=== PATIENT | female | born 1930 | race Two or more races ===

== ENCOUNTER 2018-03-14 16:33 | Emergency (ER) | payer MEDICARE, OTHER ==
[~2018-03-14] VITALS: Ht 165.1 cm; Wt 59.0 kg
[2018-03-14 17:30] VITALS: BP 156/64
[2018-03-14 17:48] LABS: BASOPHILS % (AUTO) 1.5 % (0.0-2.0); EOSINOPHILS % (AUTO) 0.4 % (0.0-3.0); HEMATOCRIT 44.2 % (37.0-47.0); HEMOGLOBIN 14.2 G/DL (12.0-16.0); LYMPHOCYTES % (AUTO) 26.5 % (20.0-45.0); MEAN CORPUSCULAR VOLUME 88 FL (80-99); NEUTROPHILS % (AUTO) 58.6 % (45.0-75.0); PLATELET COUNT 376 K/UL (150-450); RED BLOOD COUNT 5.05 M/UL (4.20-5.40); RED CELL DISTRIBUTION WIDTH 13.2 % (11.6-14.8); WHITE BLOOD COUNT 9.2 K/UL (4.8-10.8)
[2018-03-14 17:52] LABS: INR 0.9 (0.9-1.1)
[2018-03-14 17:54] LABS: ANION GAP 13 mmol/L (5-15); BLOOD UREA NITROGEN 29 mg/dL (7-18); CALCIUM 9.3 MG/DL (8.5-10.1); CARBON DIOXIDE 21 MMOL/L (21-32); CHLORIDE 102 MMOL/L (98-107); POTASSIUM 3.9 MMOL/L (3.5-5.1); SODIUM 136 MMOL/L (136-145)
[2018-03-14 18:00] VITALS: BP 142/91
[2018-03-14] MEDS ORDERED: EDARBYCLOR 40-1 EAC1 ORAL (18:02)
[2018-03-14] MEDS ORDERED: BRIMONIDINE TART5 ML BOTH EYES (18:02)
[2018-03-14] MEDS ORDERED: METOPROLOL TART25 MG ORAL (18:02)
[2018-03-14] MEDS ORDERED: ATORVASTATIN CA20 MG ORAL (18:02)
[2018-03-14] MEDS ORDERED: MELOXICAM15 MG PO (18:02)
[2018-03-14] MEDS ORDERED: PROCARDIA XL90 M4 ORAL (18:02)
[2018-03-14 18:08] LABS: ALANINE AMINOTRANSFERASE 20 U/L (12-78); ALBUMIN 4.1 G/DL (3.4-5.0); ALKALINE PHOSPHATASE 111 U/L (46-116); ASPARTATE AMINO TRANSFERASE 18 U/L (15-37); BILIRUBIN,TOTAL 0.8 MG/DL (0.2-1.0); CREATINE KINASE 141 U/L (26-308)
--- NOTE | 2018-03-14 18:18 | Emergency Room Report ---
History of Present Illness General Chief Complaint: Altered Level of Consciousness Source: Medical Record Present Illness HPI Patient presents with complaints of change in mental status patient has been having difficulty speaking Initially on initial evaluation patient was showing signs of expressive aphasia history was difficult to obtain from the patient After family has presented patient had complained of a possible stroke on Wednesday With similar symptoms of expressive aphasia Patient also complains of the right hand had felt somewhat weaker than usual with numbness and tingling Denies any chest pain denies any back or flank pain Denies any acute fall or trauma Allergies: Coded Allergies: No Known Allergies (Unverified , 03/14/18) Patient History Past Medical History: see triage record Pertinent Family History: none Reviewed Nursing Documentation: PMH: Agreed; PSxH: Agreed Nursing Documentation-PMH Hx Cardiac Problems: Yes Hx Hypertension: Yes Review of Systems All Other Systems: negative except mentioned in HPI Physical Exam Vital Signs Date Time Temp Pulse Resp B/P (MAP) Pulse Ox O2 Delivery O2 Flow Rate FiO2 03/14/18 16:36 98.0 130 18 130/80 98 Room Air 98.1 Sp02 EP Interpretation: reviewed, normal General Appearance: well appearing Head: normocephalic, atraumatic Eyes: bilateral eye PERRL, bilateral eye EOMI ENT: hearing grossly normal, normal pharynx Neck: supple, thyroid normal Respiratory: lungs clear, no retraction, no accessory muscle use Cardiovascular #1: tachycardia, irregularly irregular Gastrointestinal: non tender, soft, no mass Genitourinary: no CVA tenderness Musculoskeletal: other - Patient has equal outside salesman in both upper extremity, negative for drift, moves both feet equally as well Neurologic: alert, oriented x3, other - Patient shows signs of expressive aphasia is not able to complete her sentences, negative drift Skin: normal color, no rash Lymphatic: no adenopathy Procedures Critical Care Time Critical Care Time 50 minutes for multiple re-evaluations, critical findings concerning for acute CVA not including any procedural time Medical Decision Making Diagnostic Impression: Primary Impression: CVA (cerebral vascular accident) Additional Impressions: Atrial fibrillation and flutter Atrial fibrillation with RVR ER Course Patient is a fairly complex patient with multiple differential to consideration including but not limited to cardiac cardiopulmonary , neurological , such as CVA and vascular emergencies Patient's CT reveals findings of acute/subacute CVA Patient also showing signs of atrial fibrillation unclear the etiology of this Patient's onset of symptoms was 2 days ago Patient is well over the time for acute intervention such as TPA Nevertheless given the subacute he of this presentation [facility] was contacted They agree that there is no acute medication and patient is outside of the window However patient will still be transferred to tertiary center for continued higher level of care and further evaluation Patient provided with aspirin remains hemodynamically stable and separate transfer for continued care Labs Test 03/14/18 17:15 White Blood Count 9.2 K/UL (4.8-10.8) Red Blood Count 5.05 M/UL (4.20-5.40) Hemoglobin 14.2 G/DL (12.0-16.0) Hematocrit 44.2 % (37.0-47.0) Mean Corpuscular Volume 88 FL (80-99) Mean Corpuscular Hemoglobin 28.1 PG (27.0-31.0) Mean Corpuscular Hemoglobin Concent 32.1 G/DL (32.0-36.0) Red Cell Distribution Width 13.2 % (11.6-14.8) Platelet Count 376 K/UL (150-450) Mean Platelet Volume 7.5 FL (6.5-10.1) Neutrophils (%) (Auto) 58.6 % (45.0-75.0) Lymphocytes (%) (Auto) 26.5 % (20.0-45.0) Monocytes (%) (Auto) 13.0 % (1.0-10.0) Eosinophils (%) (Auto) 0.4 % (0.0-3.0) Basophils (%) (Auto) 1.5 % (0.0-2.0) Prothrombin Time 9.7 SEC (9.30-11.50) Prothromb Time International Ratio 0.9 (0.9-1.1) Activated Partial Thromboplast Time 26 SEC (23-33) Sodium Level 136 MMOL/L (136-145) Potassium Level 3.9 MMOL/L (3.5-5.1) Chloride Level 102 MMOL/L (98-107) Carbon Dioxide Level 21 MMOL/L (21-32) Anion Gap 13 mmol/L (5-15) Blood Urea Nitrogen 29 mg/dL (7-18) Creatinine 2.0 MG/DL (0.55-1.30) Estimat Glomerular Filtration Rate mL/min (>60) Glucose Level 93 MG/DL (74-106) Lactic Acid Level 1.70 mmol/L (0.4-2.0) Calcium Level 9.3 MG/DL (8.5-10.1) Total Bilirubin 0.8 MG/DL (0.2-1.0) Aspartate Amino Transf (AST/SGOT) 18 U/L (15-37) Alanine Aminotransferase (ALT/SGPT) 20 U/L (12-78) Alkaline Phosphatase 111 U/L (46-116) Total Creatine Kinase 141 U/L (26-308) Creatine Kinase MB 2.0 NG/ML (0.0-3.6) Creatine Kinase MB Relative Index 1.4 Troponin I 0.000 ng/mL (0.000-0.056) Pro-B-Type Natriuretic Peptide 1793 pg/mL (0-125) Total Protein 8.1 G/DL (6.4-8.2) Albumin 4.1 G/DL (3.4-5.0) Globulin 4.0 g/dL Albumin/Globulin Ratio 1.0 (1.0-2.7) Lipase 160 U/L (73-393) EKG Diagnostic Results Rate: tachycardiac Rhythm: other - A. fib ST Segments: other - Nonspecific ST T wave changes Rhythm Strip Diag. Results EP Interpretation: yes Rate: 105 Rhythm: no PVC's, no ectopy, other - A. fib Chest X-Ray Diagnostic Results Chest X-Ray Diagnostic Results : Chest X-Ray Ordered: Yes # of Views/Limited/Complete: 1 View Indication: Chest Pain EP Interpretation: Yes Interpretation: no consolidation, no effusion, other - Cardiomegaly Impression: No acute disease Electronically Signed by: Adrianne Solis DO CT/MRI/US Diagnostic Results CT/MRI/US Diagnostic Results : Impression CT head: Acute/subacute CVA left parietal temporal region Last Vital Signs Date Time Temp Pulse Resp B/P (MAP) Pulse Ox O2 Delivery O2 Flow Rate FiO2 03/14/18 17:30 119 20 156/64 99 Room Air 03/14/18 16:36 98.0 98.1 Status: improved Disposition: XFER SHT-TRM HOSP Condition: Critical Referrals: [facility],REFERRING (PCP) Adrianne Solis DO Mar 14, 2018 18:18
[2018-03-14 18:30] VITALS: BP 158/57
[2018-03-14 19:29] VITALS: BP 158/91
[2018-03-14 19:45] LABS: APPEARANCE,URINE CLEAR; BILIRUBIN, URINE NEGATIVE (NEGATIVE); COLOR,URINE PALE YELLOW; GLUCOSE, URINE (UA) NEGATIVE (NEGATIVE); KETONES,URINE NEGATIVE (NEGATIVE); LEUKOCYTE ESTERASE ,URINE 2+ (NEGATIVE); NITRITE,URINE NEGATIVE (NEGATIVE); PH,URINE 5 (4.5-8.0); PROTEIN,URINE NEGATIVE (NEGATIVE); UROBILINOGEN,URINE NORMAL MG/DL (0.0-1.0)
--- NOTE | 2018-03-15 12:13 | Diagnostic Imaging Report ---
Indication: Chest pain Technique: One view of the chest Comparison: none Findings: Lungs and pleural spaces are clear. Heart is mildly enlarged. The aorta is calcified Impression: No acute process Borderline cardiomegaly
--- NOTE | 2018-03-15 13:08 | Diagnostic Imaging Report ---
Indications: Altered mental status Technique: Spiral acquisitions obtained through the brain. Angled axial and coronal 5 x 5 mm slices were reconstructed. Total dose length product 1375.76 mGycm. CTDI vol(s) 70.38 mGy. Dose reduction achieved using automated exposure control Comparison: None. Findings: There is a wedge-shaped area of cytotoxic edema in the anterior left parietal lobe. There is generalized age-related enlargement of the ventricles and extra axial CSF spaces. This results in minimal local mass effect. There is periventricular deep white matter low-attenuation consistent with chronic ischemic change. No acute intracranial hemorrhage or edema or midline shift. Intact calvarium. Visualized orbits and sinuses are unremarkable Impression: Cytotoxic edema in the left anterior right lobe, consistent with acute/subacute infarct Negative for acute intracranial bleed Chronic and age-related changes, as described This agrees with the preliminary interpretation provided overnight by [facility] teleradiology service. The CT scanner at [facility] is accredited by the [employer] and the scans are performed using protocols designed to limit radiation exposure to as low as reasonably achievable to attain images of sufficient resolution adequate for diagnostic evaluation.
== END 2018-03-14 19:17 | disposition short-term general hospital (02) ==
LOC: EDBD 16:33 → EMR 17:37
DX: I63.9 Cerebral infarction, unspecified (principal); I48.91 Unspecified atrial fibrillation; I48.92 Unspecified atrial flutter; I10 Essential (primary) hypertension
CPT/HCPCS: 36415; 70450; 71045; 80053; 81003; 82550; 82553; 83605; 83690; 83880; 84484; 85025; 85610; 85730; 87040; 99291

== ENCOUNTER 2018-04-10 21:18 | Emergency (ER) | payer MEDICARE ==
[~2018-04-10] VITALS: Ht 162.6 cm; Wt 70.3 kg
[~2018-04-10 21:18] MED LIST: ATORVASTATIN CA20 MG ORAL; BRIMONIDINE TART5 ML BOTH EYES; EDARBYCLOR 40-1 EAC1 ORAL; MELOXICAM15 MG PO; METOPROLOL TART25 MG ORAL; PROCARDIA XL90 M4 ORAL
--- NOTE | 2018-04-10 21:23 | Emergency Room Report ---
History of Present Illness General Chief Complaint: Chest Pain Source: Patient, EMS Present Illness HPI Patient presents with left-sided chest pain. She feels a Berry palpitations. She rates this as 3/10. There is some pressure. She has history of atrial fibrillation and feels her heart is racing at this time. She's had problems with control of the rate. She's got a heart monitor at home. 2 weeks ago she had a stroke. Affected her thinking somewhat but her strength is good bilaterally. She also has a headache at this time. She denies dizziness or near syncope. The patient is on Elquis. The patient also complains about swelling both of her legs. There is no pain or calfs. She denies shortness of breath. No fevers, chills dysuria or change in bowel habits. Allergies: Coded Allergies: No Known Allergies (Unverified , 03/14/18) Patient History Past Medical History: see triage record Social History: Denies: smoking, alcohol use, drug use Social History Narrative from home Reviewed Nursing Documentation: PMH: Agreed; PSxH: Agreed Nursing Documentation-PMH Hx Hypertension: Yes Hx Cerebrovascular Accident: Yes Review of Systems All Other Systems: negative except mentioned in HPI Physical Exam Vital Signs Date Time Temp Pulse Resp B/P (MAP) Pulse Ox O2 Delivery O2 Flow Rate FiO2 04/10/18 21:05 98.0 94 18 167/67 98 Room Air 98.1 Sp02 EP Interpretation: reviewed, normal General Appearance: well appearing, no apparent distress, GCS 15 Head: normocephalic Eyes: bilateral eye normal inspection, bilateral eye PERRL, bilateral eye EOMI ENT: moist mucus membranes Neck: supple Respiratory: lungs clear, normal breath sounds Cardiovascular #1: regular rate, rhythm Cardiovascular #2: 2+ radial (R) Gastrointestinal: normal inspection, normal bowel sounds, non tender, no mass, non-distended Musculoskeletal: back normal, normal range of motion, swelling - MCPs Neurologic: alert, oriented x3, felt coverer III-XII nml as tested, DTRs symmetric, sensory intact, cerebellar normal, speech normal, motor weakness - L, patient states not worsened Psychiatric: mood/affect normal Skin: normal inspection, warm/dry Medical Decision Making Diagnostic Impression: Primary Impression: Chest pain Qualified Codes: R07.9 - Chest pain, unspecified Additional Impressions: Atrial fibrillation with RVR Petechial hemorrhage Eliquis use ER Course Patient presents with chest pain and atrial fibrillation with rapid ventricular response. Differential includes acute myocardial infarction, myocardial ischemia, opticians from rapid heart rate, chest wall pain amongst others. Evaluation will be with EKG, chest x-ray and labs. The patient will be treated with diltiazem. In addition to that she will receive a small dose of morphine for the headache. EKG with atrial fibrillation with rapid ventricular response no acute changes. Chest x-ray globular heart. Labs significant for negative troponin. Patient refused initial analgesia. CT of the head was ordered. This revealed an area of petechial hemorrhage the left parietal cortex where the prior CVA was. The patient was presented to Dr. Pat. He stated that he has access to neurosurgery and neurology at [place]. The patient is transferred to [place] imparted to higher level of care. The patient was still complaining about headache and agreed to take a small dose of morphine. Her neurologic exam was unchanged. Presented to Dr. Jha as [facility] does not have beds. Accepted at [facility]. Presented to Dr. Perez as [facility] is not a contracted hospital for [place]. Admit tele Dr. Perez. Laboratory Tests Test 04/10/18 21:15 04/10/18 21:20 Urine Color Pending Urine Appearance Pending Urine pH Pending Urine Specific [place] Pending Urine Protein Pending Urine Glucose (UA) Pending Urine Ketones Pending Urine Occult Blood Pending Urine Nitrite Pending Urine Bilirubin Pending Urine Urobilinogen Pending Urine Leukocyte Esterase Pending White Blood Count 11.5 K/UL (4.8-10.8) H Red Blood Count 4.37 M/UL (4.20-5.40) Hemoglobin 12.5 G/DL (12.0-16.0) Hematocrit 38.6 % (37.0-47.0) Mean Corpuscular Volume 88 FL (80-99) Mean Corpuscular Hemoglobin 28.6 PG (27.0-31.0) Mean Corpuscular Hemoglobin Concent 32.4 G/DL (32.0-36.0) Red Cell Distribution Width 14.8 % (11.6-14.8) Platelet Count 289 K/UL (150-450) Mean Platelet Volume 7.2 FL (6.5-10.1) Neutrophils (%) (Auto) 70.7 % (45.0-75.0) Lymphocytes (%) (Auto) 14.7 % (20.0-45.0) L Monocytes (%) (Auto) 11.9 % (1.0-10.0) H Eosinophils (%) (Auto) 1.0 % (0.0-3.0) Basophils (%) (Auto) 1.7 % (0.0-2.0) Prothrombin Time 10.6 SEC (9.30-11.50) Prothrombin Time INR 1.0 (0.9-1.1) PTT 25 SEC (23-33) Sodium Level 139 MMOL/L (136-145) Potassium Level 3.9 MMOL/L (3.5-5.1) Chloride Level 107 MMOL/L (98-107) Carbon Dioxide Level 24 MMOL/L (21-32) Anion Gap 8 mmol/L (5-15) Blood Urea Nitrogen 43 mg/dL (7-18) H Creatinine 1.7 MG/DL (0.55-1.30) H Estimate Glomerular Filtration Rate mL/min (>60) Glucose Level 111 MG/DL (74-106) H Calcium Level 8.5 MG/DL (8.5-10.1) Total Bilirubin 0.6 MG/DL (0.2-1.0) Aspartate Amino Transferase (AST) 15 U/L (15-37) Alanine Aminotransferase (ALT) 29 U/L (12-78) Alkaline Phosphatase 93 U/L (46-116) Total Creatine Kinase 30 U/L (26-308) Troponin I 0.022 ng/mL (0.000-0.056) Pro-B-Type Natriuretic Peptide 3254 pg/mL (0-125) H Total Protein 6.3 G/DL (6.4-8.2) L Albumin 3.0 G/DL (3.4-5.0) L Globulin 3.3 g/dL Albumin/Globulin Ratio 0.9 (1.0-2.7) L EKG Diagnostic Results Rate: tachycardiac ST Segments: no acute changes - a fib/flutter Rhythm Strip Diag. Results EP Interpretation: yes Rhythm: no PVC's, no ectopy, other - a fib RVR Chest X-Ray Diagnostic Results Chest X-Ray Diagnostic Results : Chest X-Ray Ordered: Yes # of Views/Limited/Complete: 1 View Indication: Chest Pain EP Interpretation: Yes Interpretation: no consolidation, no effusion, no pneumothorax, other - inc cor Impression: Other Electronically Signed by: Electronically signed by Dhruv Ferrer MD CT/MRI/US Diagnostic Results CT/MRI/US Diagnostic Results : Imaging Test Ordered: ct head Impression CT is compared to March 14. Some mild increase in density is seen along the cortex in the left parietal lobe where the acute infarct was seen on a prior exam. This is likely related to a small amount of petechial hemorrhage. Cerebral atrophy Last Vital Signs Date Time Temp Pulse Resp B/P (MAP) Pulse Ox O2 Delivery O2 Flow Rate FiO2 04/11/18 05:25 98.4 86 18 129/44 100 Room Air 98.4 Status: improved Disposition: ADMITTED INPATIENT Condition: Serious - higher level of care attempted, but unable Dhruv Ferrer M.D. Apr 10, 2018 21:23
[2018-04-10] MEDS ORDERED: ELIQUIS2.5 MG PO (21:28)
[2018-04-10] MEDS ORDERED: NIFEDIPINE10 MG ORAL (21:28)
[2018-04-10] MEDS ORDERED: dilTIAZem HCl 25mg/5ml Inj IV ONE (21:30)
[2018-04-10] MEDS ORDERED: Morphine Sulfate 2mg/ml Inj IVP ONE (21:30)
[2018-04-10 21:41] LABS: BASOPHILS % (AUTO) 1.7 % (0.0-2.0); HEMATOCRIT 38.6 % (37.0-47.0); HEMOGLOBIN 12.5 G/DL (12.0-16.0); LYMPHOCYTES % (AUTO) 14.7 % (20.0-45.0); MEAN CORPUSCULAR VOLUME 88 FL (80-99); MONOCYTES % (AUTO) 11.9 % (1.0-10.0); NEUTROPHILS % (AUTO) 70.7 % (45.0-75.0); PLATELET COUNT 289 K/UL (150-450); RED BLOOD COUNT 4.37 M/UL (4.20-5.40); RED CELL DISTRIBUTION WIDTH 14.8 % (11.6-14.8); WHITE BLOOD COUNT 11.5 K/UL (4.8-10.8)
[2018-04-10 21:58] LABS: ANION GAP 8 mmol/L (5-15); BLOOD UREA NITROGEN 43 mg/dL (7-18); CALCIUM 8.5 MG/DL (8.5-10.1); CARBON DIOXIDE 24 MMOL/L (21-32); CHLORIDE 107 MMOL/L (98-107); CREATININE 1.7 MG/DL (0.55-1.30); POTASSIUM 3.9 MMOL/L (3.5-5.1); SODIUM 139 MMOL/L (136-145)
[2018-04-10 22:09] LABS: ALANINE AMINOTRANSFERASE 29 U/L (12-78); ALBUMIN/GLOBULIN RATIO 0.9 (1.0-2.7); ALKALINE PHOSPHATASE 93 U/L (46-116); ASPARTATE AMINO TRANSFERASE 15 U/L (15-37); BILIRUBIN,TOTAL 0.6 MG/DL (0.2-1.0); CREATINE KINASE 30 U/L (26-308)
[2018-04-10 23:30] VITALS: BP 128/45
[2018-04-11] VITALS (8 sets, daily range): BP systolic 124–163; BP diastolic 44–78
[2018-04-11] MEDS ORDERED: Morphine Sulfate 2mg/ml Inj IVP ONE (00:30)
[2018-04-11 02:10] LABS: APPEARANCE,URINE CLEAR; BILIRUBIN, URINE NEGATIVE (NEGATIVE); COLOR,URINE PALE YELLOW; GLUCOSE, URINE (UA) NEGATIVE (NEGATIVE); KETONES,URINE NEGATIVE (NEGATIVE); LEUKOCYTE ESTERASE ,URINE 2+ (NEGATIVE); NITRITE,URINE NEGATIVE (NEGATIVE); PH,URINE 6 (4.5-8.0); PROTEIN,URINE NEGATIVE (NEGATIVE); UROBILINOGEN,URINE NORMAL MG/DL (0.0-1.0)
[2018-04-11] MEDS ORDERED: cefTRIAXone 1 GM in NS 55 ML IVPB ONE (02:45)
--- NOTE | 2018-04-11 09:56 | Diagnostic Imaging Report ---
Indications: Headache Technique: Spiral acquisitions obtained through the brain. Angled axial and coronal 5 x 5 mm slices were reconstructed. Total dose length product 1411.27 mGycm. CTDI vol(s) 70.38 mGy. Dose reduction achieved using automated exposure control Comparison: 03/14/2018 Findings: Previously demonstrated cytotoxic edema in the left parietal lobe is no longer evident, and only a small amount of residual encephalomalacia is present. There is very slight increased attenuation of the cortical valdovinos matter. Old right frontal and parietal cortical infarcts are again demonstrated. No acute intracranial hemorrhage or edema, mass effect, nor midline shift. There is age-related enlargement of the ventricles and extra axial CSF spaces. There is periventricular deep white matter ischemic change. Intact calvarium. Visualized orbits and sinuses are unremarkable. Impression: Subtle slight increased attenuation of cortical valdovinos matter area of previously demonstrated acute infarct, could represent a small amount of residual petechial hemorrhage. No other evidence of acute intracranial bleed. No mass effect. Other chronic and age-related changes, as described This agrees with the preliminary interpretation provided overnight by [facility] teleradiology service. The CT scanner at [facility] is accredited by the [employer] and the scans are performed using protocols designed to limit radiation exposure to as low as reasonably achievable to attain images of sufficient resolution adequate for diagnostic evaluation.
--- NOTE | 2018-04-11 11:58 | Diagnostic Imaging Report ---
Indication: Chest pain Technique: One view of the chest Comparison: 03/14/2018 Findings: Persistent elevation of the right hemidiaphragm. Lungs and pleural spaces are clear. The heart size is upper limits of normal. There are degenerative changes of both shoulders Impression: No acute process
--- NOTE | 2018-04-11 13:30 | History and Physical Report ---
DATE OF ADMISSION: 04/11/2018 HISTORY OF PRESENT ILLNESS: This is a very pleasant elderly female with a previous history of atrial fibrillation. The patient states she was admitted to this hospital and transferred to outside facility recently where she was kept for two days. She states she was discharged on a Holter monitor. However, she has not turned it back and she states she was having palpitations yesterday. She came to the emergency room and was admitted to the hospital. She also reports some chest discomfort. The patient reports that she has recently had a stroke. She denies any pedal edema or shortness of breath. At this point, she has no chest pain. The patient denies any headaches, hematemesis, melena, hematochezia, or weight loss. PAST MEDICAL HISTORY: Notable for atrial fibrillation and CVA. HOME MEDICATIONS: Include Eliquis, Lipitor, nifedipine, and metoprolol. ALLERGIES: None reported. REVIEW OF SYSTEMS: None reported. PHYSICAL EXAMINATION: GENERAL: Reveals elderly female. HEENT: Unremarkable. LUNGS: Clear breath sounds bilaterally. ABDOMEN: Soft. EXTREMITIES: There is no edema. NEUROLOGIC: Nonfocal. VITAL SIGNS: Blood pressure is 150/60, heart rate is 94, respirations 18, afebrile, and O2 of 92% on room air. LABORATORY AND DIAGNOSTIC DATA: Lab testing shows white count 11,500. Chemistries are normal. Troponin 0.02. Creatinine 1.7. EKG shows atrial fibrillation with controlled RVR. The patient underwent a chest x-ray, which was done in February, which was negative except for borderline cardiomegaly. She also had a head CT performed in February 2018, which showed edema of the left anterior right lobe consistent with subacute infarct. IMPRESSION: 1. Recent CVA. 2. Atrial fibrillation with RVR, rate controlled now. 3. Chronic Eliquis. 4. Hypertension. DISCUSSION: Admit to the hospital. We will consult Cardiology. Continue home medications. We will follow carefully. We will attempt to obtain old records. Renny Perez M.D. DR: MARIE JOB#: [id number] CC:
[2018-04-11] MEDS: Brimonidine 0.2% Opth Sol BOTH EYES SCH ×3 (15:13→21:12)
[2018-04-11] MEDS ORDERED: Atorvastatin 20mg tab ORAL SCH (21:00)
[2018-04-11] MEDS ORDERED: Metoprolol 25mg tab ORAL SCH (21:00)
--- NOTE | 2018-04-11 21:18 | Cardiology Progress Note ---
Assessment/Plan Assessment/Plan The patient is seen and examined, full consult note will be dictated. Objective Last 24 Hour Vital Signs Date Time Temp Pulse Resp B/P (MAP) Pulse Ox O2 Delivery O2 Flow Rate FiO2 04/11/18 21:02 93 134/71 04/11/18 20:02 97.8 93 18 134/71 (92) 97 97.8 04/11/18 15:45 89 04/11/18 12:00 98.9 92 18 160/72 (101) 95 98.9 04/11/18 11:50 87 04/11/18 09:00 Room Air 04/11/18 08:00 97.2 90 18 163/70 (101) 99 97.2 04/11/18 07:50 77 04/11/18 06:58 Room Air 04/11/18 06:33 98.4 04/11/18 06:00 97.0 90 21 160/78 (105) 97 97.0 04/11/18 05:30 98.4 86 18 129/44 100 Room Air 98.4 04/11/18 05:25 98.4 86 18 129/44 100 Room Air 98.4 04/11/18 04:00 97.9 78 18 124/46 100 Room Air 97.9 04/11/18 02:00 98.1 80 18 128/54 100 Room Air 98.1 04/11/18 00:53 98.1 04/11/18 00:20 98.1 81 18 130/60 100 Room Air 98.1 04/11/18 00:12 36.9 04/10/18 23:30 98.1 71 18 128/45 98 Room Air 98.1 04/10/18 23:13 98.0 04/10/18 21:48 95 147/60 04/10/18 21:20 94 18 Room Air Intake and Output 04/10/18 04/11/18 19:00 07:00 Intake Total 295 ml Balance 295 ml Intake Oral 240 ml IV Total 55 ml Laboratory Tests Test 04/10/18 21:20 04/11/18 10:00 White Blood Count 11.5 K/UL (4.8-10.8) H Red Blood Count 4.37 M/UL (4.20-5.40) Hemoglobin 12.5 G/DL (12.0-16.0) Hematocrit 38.6 % (37.0-47.0) Mean Corpuscular Volume 88 FL (80-99) Mean Corpuscular Hemoglobin 28.6 PG (27.0-31.0) Mean Corpuscular Hemoglobin Concent 32.4 G/DL (32.0-36.0) Red Cell Distribution Width 14.8 % (11.6-14.8) Platelet Count 289 K/UL (150-450) Mean Platelet Volume 7.2 FL (6.5-10.1) Neutrophils (%) (Auto) 70.7 % (45.0-75.0) Lymphocytes (%) (Auto) 14.7 % (20.0-45.0) L Monocytes (%) (Auto) 11.9 % (1.0-10.0) H Eosinophils (%) (Auto) 1.0 % (0.0-3.0) Basophils (%) (Auto) 1.7 % (0.0-2.0) Prothrombin Time 10.6 SEC (9.30-11.50) Prothromb Time International Ratio 1.0 (0.9-1.1) Activated Partial Thromboplast Time 25 SEC (23-33) Sodium Level 139 MMOL/L (136-145) Potassium Level 3.9 MMOL/L (3.5-5.1) Chloride Level 107 MMOL/L (98-107) Carbon Dioxide Level 24 MMOL/L (21-32) Anion Gap 8 mmol/L (5-15) Blood Urea Nitrogen 43 mg/dL (7-18) H Creatinine 1.7 MG/DL (0.55-1.30) H Estimat Glomerular Filtration Rate mL/min (>60) Glucose Level 111 MG/DL (74-106) H Calcium Level 8.5 MG/DL (8.5-10.1) Total Bilirubin 0.6 MG/DL (0.2-1.0) Aspartate Amino Transf (AST/SGOT) 15 U/L (15-37) Alanine Aminotransferase (ALT/SGPT) 29 U/L (12-78) Alkaline Phosphatase 93 U/L (46-116) Total Creatine Kinase 30 U/L (26-308) Troponin I 0.022 ng/mL (0.000-0.056) 0.024 ng/mL (0.000-0.056) Pro-B-Type Natriuretic Peptide 3254 pg/mL (0-125) H Total Protein 6.3 G/DL (6.4-8.2) L Albumin 3.0 G/DL (3.4-5.0) L Globulin 3.3 g/dL Albumin/Globulin Ratio 0.9 (1.0-2.7) L Shoaib Moslye MD Apr 11, 2018 21:18
[2018-04-11] MEDS ORDERED: Eliquis 2.5mg tablet ORAL SCH (22:00)
[2018-04-12] VITALS: BP 136/65
[2018-04-12 04:00] VITALS: BP 164/81
[2018-04-12] MEDS: Brimonidine 0.2% Opth Sol BOTH EYES SCH ×2 (06:09→14:00)
[2018-04-12 08:00] VITALS: BP 131/65
[2018-04-12] MEDS ORDERED: Meloxicam 15 MG TAB ORAL SCH (09:00)
[2018-04-12] MEDS ORDERED: Metoprolol Tartrate 50mg tab ORAL SCH (09:00)
[2018-04-12] MEDS ORDERED: Eliquis 2.5mg tablet ORAL SCH ×2 (09:00)
[2018-04-12 12:00] VITALS: BP 149/68
--- NOTE | 2018-04-12 23:27 | Cardiology Progress Note ---
Assessment/Plan Assessment/Plan 1. Atrial fibrillation, continue metoprolol and Eliquis. 2. 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 Continue nifedipine , hospital does not carry Edarbyclor. 3. Moderate pulmonary HTN. 4. Moderate MR/AR Subjective Subjective Atrial fibrillation at rate of 89. Objective Last 24 Hour Vital Signs Date Time Temp Pulse Resp B/P (MAP) Pulse Ox O2 Delivery O2 Flow Rate FiO2 04/12/18 12:00 98.7 89 18 149/68 (95) 98 98.7 04/12/18 09:08 105 131/65 04/12/18 09:00 Room Air 04/12/18 08:57 105 131/65 04/12/18 08:00 98.4 105 18 131/65 (87) 98 98.4 04/12/18 07:42 116 04/12/18 04:00 97.0 92 18 164/81 (108) 97 97.0 04/12/18 04:00 85 04/12/18 00:00 86 04/12/18 00:00 97.8 84 16 136/65 (88) 96 97.8 Intake and Output 04/11/18 04/12/18 19:00 07:00 Intake Total 840 ml 240 ml Balance 840 ml 240 ml Intake Oral 840 ml 240 ml # Voids 4 1 2D Echo: EF 60-65%, Mod MR/AR, mild to mod TR with RVSP at 47 mmHg Laboratory Tests Test 04/12/18 09:00 Troponin I 0.013 ng/mL (0.000-0.056) Microbiology Date/Time Source Procedure Growth Status 04/10/18 01:31 Urine,Clean Catch Urine Culture - Preliminary Mixed Urogenital Contaminants Resulted Objective Head: normocephalic, atraumatic, bilateral eye normal inspection, bilateral eye PERRL Neck: moist mucus membranes, negative JVD, no carotid bruit Respiratory: normal breath sounds Cardiovascular: Irregularly irregular rhythm, normal S1S2, no murmurs, gallops or rubs. Gastrointestinal: normal inspection, normal bowel sounds, non tender, no mass, non-distended Musculoskeletal: back normal, normal range of motion, swelling - MCPs Shoaib Mosley MD Apr 12, 2018 23:27
--- NOTE | 2018-04-13 00:15 | Progress Note ---
DATE: 04/12/2018 PULMONARY/MEDICAL FOLLOWUP SUBJECTIVE: The patient is seen in the telemetry unit. She is comfortable. She has had no other chest pain. Heart rate is controlled on medication. She has atrial fibrillation. OBJECTIVE: VITAL SIGNS: Blood pressure is 130/60, heart rate 72, respirations 18 and she is afebrile. CHEST: Clear breath sounds bilaterally with normal heart sounds. ABDOMEN: Soft. EXTREMITIES: There is no edema. NEUROLOGIC: Nonfocal. LABORATORY AND DIAGNOSTIC DATA: Laboratory testing shows negative troponins. Remaining labs unremarkable. Echocardiogram shows normal EF. IMPRESSION: 1. Atypical chest pain. 2. History of atrial fibrillation with RVR. 3. Negative serial troponins. DISCUSSION: The patient is at this time comfortable and afebrile. Troponins are negative. At this time, I am comfortable discharging her. She will follow up as an outpatient with primary care physician. I have advised her to pursue cardiac follow up on discharge. She was discharged with resumption of home medications including Eliquis. Renny Perez M.D. DR: AR JOB#: [id number] CC:
--- NOTE | 2018-04-13 11:30 | Consultation ---
DATE OF CONSULTATION: 04/11/2018 CARDIOLOGY CONSULTATION CONSULTING PHYSICIAN: Shoaib Mosley M.D. REFERRING PHYSICIAN: Renny Perez M.D. REASON FOR CONSULTATION: Management of chest pain. HISTORY OF PRESENT ILLNESS: The patient is a very unfortunate 88-year-old lady, who presents to the hospital with left-sided chest pain as well as palpitations. The patient has a history of atrial fibrillation and takes Eliquis for prevention of stroke associated with this rhythm. The patient states that she had a stroke just about two weeks prior to admission to this hospital. On arrival to the emergency department, her blood pressure was 167/67 mmHg and heart rate was 94. Chest x-ray was significant for no acute cardiopulmonary disease. A 12-lead electrocardiogram revealed atrial fibrillation with rapid ventricular response. The patient was admitted to the telemetry for further evaluation and management of chest pain and atrial fibrillation. Cardiology consultation was made at the request of Dr. Perez. PAST MEDICAL HISTORY: 1. History of atrial fibrillation. 2. History of hypertension. PAST SURGICAL HISTORY: None. ALLERGIES: No known drug allergies. MEDICATIONS: List of medication includes apixaban 2.5 mg once daily, atorvastatin 20 mg at bedtime, Edarbyclor 40/25 one tablet daily, Alphagan one drop three times a day, meloxicam 15 mg p.o. daily, metoprolol 25 mg twice daily, and Procardia XL 90 mg by mouth daily. SOCIAL HISTORY: Denies any tobacco, alcohol, or illicit drug use. FAMILY HISTORY: No premature coronary artery disease in the first-degree relatives. REVIEW OF SYSTEMS: HEENT: Denies any headache, diplopia, or blurred vision. CONSTITUTIONAL: Denies any fever, chills, night sweats, or weight loss. CARDIOVASCULAR: Has complaints of palpitations and left-sided chest pain. Denies any PND, orthopnea. She has lower extremity swelling of both legs. PULMONARY: Denies any cough, hemoptysis, or wheezing. GASTROINTESTINAL: Denies any nausea, vomiting, diarrhea, constipation, abdominal pain, or GI bleed. GENITOURINARY: Denies any hematuria, dysuria, or incontinence. NEUROLOGIC: History of stroke in the past. No lateralization or slurred speech at this time. PHYSICAL EXAMINATION: VITAL SIGNS: Blood pressure was 167/67, pulse of 94, respirations 18, O2 saturation 98% on room air, and temperature 98.0 degrees Fahrenheit. GENERAL: The patient is a very unfortunate 88-year-old lady, in no apparent respiratory distress. Alert and oriented x4. HEENT: Atraumatic and normocephalic. Anicteric. Pupils are equal, round, and reactive to light and accommodation. Extraocular muscles intact. NECK: JVP is less than 5 cm. No carotid bruits. Carotid upstrokes are 2+ bilaterally. CARDIOVASCULAR: Normal S1, S2. Regular rate and rhythm. No murmurs, gallops, or rubs. LUNGS: ABDOMEN: Soft, nontender, and nondistended. No hepatosplenomegaly. Positive bowel sounds. EXTREMITIES: LABORATORY AND DIAGNOSTIC DATA: Laboratory findings, WBC of 11.5, hemoglobin 12.5, hematocrit , and platelets . Sodium is 139, potassium 3.9, chloride 102, bicarbonate 27, BUN of 23, creatinine 1.7, glucose is 111, and calcium is 8.5. Troponin I . A 2D echocardiogram systolic function with ejection fraction of approximately 60% to 65%, trace pericardial effusion, mild left ventricular enlargement, moderate aortic valvular regurgitation, , mild to moderate . ASSESSMENT AND PLAN: The patient is a very unfortunate 88-year-old female, seen in Cardiology consultation at the request of Dr. Perez. 1. Atrial fibrillation with rapid ventricular response. I would like to continue with metoprolol, which is increased to 50 mg twice daily as well as apixaban, which will be increased to 2.5 mg twice daily. 2. History of hypertension. Continue the patient with nifedipine and metoprolol at this time. We will place a hold on the combination of ARB and diuretic that the patient was taking at home. 3. Moderate pulmonary hypertension. 4. Moderate mitral and aortic regurgitation with systolic function, which could be a manifestation of hypertensive heart disease. I would like to thank Dr. Perez for allowing me to participate in the care of this patient. Shoaib Dimitri, M.D. DR: STACY JOB#: [id number] CC:
--- NOTE | 2018-04-15 16:14 | Cardiology Report ---
APPROVED REPORT EXAM: Two-dimensional and M-mode echocardiogram with Doppler and color Doppler. INDICATION ATRIAL FIBRULATION M-Mode DIMENSIONS IVSd0.9 (0.7-1.1cm)Left Atrium (MM)4.7 (1.6-4.0cm) LVDd5.3 (3.5-5.6cm)Aortic Root2.7 (2.0-3.7cm) PWd1.4 (0.7-1.1cm)Aortic Cusp Exc.1.7 (1.5-2.0cm) IVSs1.3 cm LVDs3.7 (2.5-4.0cm) PWs1.8 cm Normal left ventricular chamber size, systolic function and wall motion. Left ventricular ejection fraction estimated to be 60-65 %. No evidence of left ventricular hypertrophy. Trace posterior pericardial effusion. Mild left atrial enlargements . Right cardiac chamber sizes are within normal limits. Focal aortic valve sclerosis with adequate cusp excursion. Thickened mitral valve leaflets with normal excursion. Mitral annulus and aortic root calcification. Pulmonic valve not well visualized. Normal tricuspid valve structure. 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 A color flow and spectral Doppler study was performed and revealed: Moderate aortic regurgitation. Moderate mitral regurgitation. left ventricular diastolic function can not determind due to A-FIB . Tricuspid systolic velocities suggests peak right ventricular systolic pressure of 47 mmHg consistent with moderate pulmonary hypertension . Mild to moderate tricuspid regurgitation . No Pulmonic regurgitation present.
== END 2018-04-12 14:45 | disposition home or self-care (01) ==
LOC: EDBD 21:18 → EMR 21:30 → INTOOBSV 04-11 04:00 → 2E 04-11 04:00 → EDBEDREQ 04-11 04:33
DX: R07.89 Other chest pain (principal); I48.91 Unspecified atrial fibrillation; R23.3 Spontaneous ecchymoses; Z79.01 Long term (current) use of anticoagulants; R51 Headache; I10 Essential (primary) hypertension; Z86.73 Personal history of transient ischemic attack (TIA), and cerebral infarction without residual deficits; I27.20 Pulmonary hypertension, unspecified; I34.0 Nonrheumatic mitral (valve) insufficiency
CPT/HCPCS: 36415; 70450; 71045; 80053; 81003; 82550; 83880; 84484; 85025; 85610; 85730; 87081; 87086; 93005; 93306; 96365; 96375; 97110; 97116; 97161; 97530; 99285; G0378; J0696; J2270; J2405